=== PATIENT | female | born 1975 | race Two or more races ===

== ENCOUNTER 2019-01-07 05:37 | Day surgery (SDC) | payer OTHER ==
[~2019-01-07 05:37] MED LIST: LEVO-T88 MCG PO
[2019-01-07] MEDS ORDERED: DOXYCYCLINE HY100 M2 PO (11:27)
[2019-01-07] MEDS ORDERED: Tylenol #3 PO (11:27)
== END 2019-01-07 17:05 | disposition home or self-care (01) ==
LOC: CIR.AMB 05:37
DX: D25.0 Submucous leiomyoma of uterus (principal); N84.0 Polyp of corpus uteri

== ENCOUNTER 2021-03-22 07:15 | Inpatient (IN) | payer OTHER ==
[~2021-03-22] VITALS: Ht 167.6 cm; Wt 66.2 kg
[~2021-03-22 07:15] MED LIST changes: +DOXYCYCLINE HY100 M2 PO; +Tylenol #3 PO
[2021-03-30] MEDS ORDERED: Tylenol #3 PO (08:31)
[2021-03-30] MEDS ORDERED: NAPR500T14 PO (08:31)
== END 2021-03-30 10:11 | disposition home or self-care (01) | DRG 743 ==
LOC: O/R 03-29 06:35 → OB/GYN 03-29 06:35
PROVIDERS: ADMIT Obstetrics & Gynecology; ATTEND Obstetrics & Gynecology
PROC: 0UT27ZZ Resection of Bilateral Ovaries, Via Natural or Artificial Opening (ICD-10-PCS; 2021-03-29)
PROC: 0UT77ZZ Resection of Bilateral Fallopian Tubes, Via Natural or Artificial Opening (ICD-10-PCS; 2021-03-29)
PROC: 0UQF7ZZ Repair Cul-de-sac, Via Natural or Artificial Opening (ICD-10-PCS; 2021-03-29)
PROC: 0USG7ZZ Reposition Vagina, Via Natural or Artificial Opening (ICD-10-PCS; 2021-03-29)
PROC: 0TJB8ZZ Inspection of Bladder, Via Natural or Artificial Opening Endoscopic (ICD-10-PCS; 2021-03-29)
PROC: 0UT97ZZ Resection of Uterus, Via Natural or Artificial Opening (ICD-10-PCS; principal; 2021-03-29 12:00)
DX: D25.2 Subserosal leiomyoma of uterus (principal); D25.1 Intramural leiomyoma of uterus; N72 Inflammatory disease of cervix uteri; N81.11 Cystocele, midline; N84.0 Polyp of corpus uteri; E03.8 Other specified hypothyroidism; N94.5 Secondary dysmenorrhea; N92.0 Excessive and frequent menstruation with regular cycle